=== PATIENT | female | born 1960 | race American Indian/Alaskan Native ===

== ENCOUNTER 2017-02-15 10:14 | Outpatient (CLI) | payer MEDICAID ==
--- NOTE | 2017-02-15 12:43 | Ultrasound Report ---
ULTRASOUND RENAL BILATERAL HISTORY: Hypertension. TECHNIQUE: transabdominal ultrasound with color Doppler interrogation. FINDINGS: The right kidney measures 11.0 x 4.6 x 5.8cm. Right renal cortex: 1.5cm. The left kidney measures 11.4 x 5.1 x 5.9cm. Left renal cortex: 1.2cm. Scans of the kidneys show normal renal contours. There is normal central calyceal clustering and good preservation of the cortical thickness. There is no evidence of mass or hydronephrosis. 8 mm cyst at the superior pole of the right kidney is noted. 9 mm cyst at the midpole of the left kidney is noted. The views of the bladder and the region of the ureters appear normal. IMPRESSION: Essentially unremarkable renal ultrasound. Tiny solitary bilateral renal cysts are identified. No mass, calculus or hydronephrosis.
== END 2017-02-15 10:15 | disposition home or self-care (01) ==
LOC: US 10:14
PROVIDERS: ATTEND Specialist
DX: I10 Essential (primary) hypertension (principal); N28.1 Cyst of kidney, acquired; F17.200 Nicotine dependence, unspecified, uncomplicated
CPT/HCPCS: 76770

== ENCOUNTER 2017-07-10 04:28 | Emergency (ER) | payer MEDICAID ==
[~2017-07-10 04:28] MED LIST: NACL 0.9% 1000 ML 1,000 ML ONE
[2017-07-10] MEDS ORDERED: ZOFRAN ONE ×2 (04:34→04:38)
[2017-07-10] MEDS ORDERED: NACL 0.9% 1000 ML 1,000 ML IV ONE (04:54)
[2017-07-10] MEDS ORDERED: ZOFRAN IV ONE (04:55)
[2017-07-10 05:19] LABS: Urine Drugs of Abuse Note Disclamer
[2017-07-10 05:37] LABS: Bilirubin,Urine NEG (Negative); Blood,Urine NEG (Negative); Granular Casts,Urine 2 /LPF; Ketones,Urine NEG (Negative); Leukocyte Esterase,Urine NEG (Negative); Nitrite,Urine NEG (Negative); RBC,Urine < 1.0 /HPF (0.0-6.0); Urobilinogen,Urine < 2.0 mg/dL (<2.0)
[2017-07-10 05:53] LABS: Basophils % (Auto) 0.2 % (0.0-1.8); Eosinophils % (Auto) 0.1 % (0.0-4.3); Hematocrit 38.9 % (30.3-42.9); Hemoglobin 12.7 gm/dl (10.1-14.3); Mean Corpuscular HGB Conc 33 % (30-34); Mean Corpuscular Hemoglobin 29 pg (28-32); Mean Corpuscular Volume 88 fl (79-97); Platelet Count 415 K/mm3 (140-440); Red Blood Count 4.44 M/mm3 (3.65-5.03); Red Cell Distribution Width 14.8 % (13.2-15.2); White Blood Count 17.2 K/mm3 (4.5-11.0)
--- NOTE | 2017-07-10 05:58 | Cat Scan Report ---
FINAL REPORT EXAM: CT HEAD/BRAIN WO CON HISTORY: headache TECHNIQUE: CT imaging acquired through the head without intravenous contrast. Transaxial reformations are provided. PRIORS: None. FINDINGS: The ventricles, cisterns and sulci are within normal limits. No intraparenchymal or extra-axial mass, hemorrhage, or mass effect. James and white-matter differentiation is within normal limits for patient age. Normal spherical shape of the globes. No significant abnormality involving the imaged portions of the paranasal sinuses and mastoid air cells. No skull or facial fracture visualized. IMPRESSION: No acute intracranial abnormality.
[2017-07-10 06:27] LABS: Alanine Aminotransferase TNR units/L (7-56); Anion Gap TNR mmol/L; BUN/Creatinine Ratio TNR; Bilirubin,Total TNR mg/dL (0.1-1.2); Blood Urea Nitrogen TNR mg/dL (7-17); Calcium TNR mg/dL (8.4-10.2); Carbon Dioxide TNR mmol/L (22-30); Chloride TNR mmol/L (98-107); Creatine Kinase TNR units/L (30-135); Glucose TNR mg/dL (65-100); Potassium TNR mmol/L (3.6-5.0); Sodium TNR mmol/L (137-145)
[2017-07-10 06:28] LABS: Albumin TNR g/dL (3.9-5); Albumin/Globulin Ratio TNR %; Alkaline Phosphatase TNR units/L (35-129); Total Protein TNR g/dL (6.3-8.2)
--- NOTE | 2017-07-10 06:59 | Emergency Department Report ---
HPI - General Chief Complaint: Overdose Time Seen by Provider: 07/10/17 06:01 - HPI HPI: This is a 56-year-old Afro-[place] female presents to the emergency department by EMS with a possible overdose and altered mental status. Report from EMS was that the EMS service was responding to a cardiac arrest call and upon arrival at the scene found this patient sitting in a car unresponsive with agonal respirations and pinpoint pupils. She received 2 mg of Narcan and within 2 minutes she began becoming more responsive and agitated. By the time I'm seeing the patient in the ER, the patient is arousable but does have some confusion about the events of this evening. She is unsure how she got here and thinks that the last thing she was doing was driving a car. She denies any significant past medical history. ED Past Medical Hx - Past Medical History Previous Medical History?: Yes Hx Hypertension: Yes Additional medical history: irregular heart beat - Surgical History Past Surgical History?: Yes Additional Surgical History: hysterectomy. right leg surgery. cyst removed from throat - Social History Smoking Status: Unknown if ever smoked - Medications Home Medications: Home Medications Medication Instructions Recorded Confirmed Last Taken Type Naproxen 500 mg PO BID #30 tablet 07/01/17 Unknown Rx Sulfamethoxazole/Trimethoprim 1 each PO BID #20 tablet 07/01/17 Unknown Rx [Bactrim DS TAB] traMADol [Ultram 50 MG tab] 50 mg PO Q6HR PRN #20 tablet 07/01/17 Unknown Rx ED Review of Systems ROS: Stated complaint: POSS OVERDOSE Other details as noted in HPI Comment: Unobtainable due to pts medical conditions Neurological: confusion Physical Exam - Physical Exam Vital Signs: Vital Signs 07/10/17 05:10 Temperature 97.7 F Pulse Rate 101 H Respiratory 20 Rate Blood Pressure 117/57 O2 Sat by Pulse 98 Oximetry Physical Exam: GENERAL: The patient is well-developed well-nourished. HENT: Normocephalic. Atraumatic. Patient has moist mucous membranes. EYES: Extraocular motions are intact. Pupils equal reactive to light bilaterally. No nystagmus. NECK: Supple. Trachea is midline. CHEST/LUNGS: Clear to auscultation. There is no respiratory distress noted. HEART/CARDIOVASCULAR: Regular. There is no tachycardia. There is no gallop rub or murmur. ABDOMEN: Abdomen is soft, nontender. Patient has normal bowel sounds. There is no abdominal distention. SKIN: Skin is warm and dry. NEURO: The patient is fatigued but is easily arousable. She is AAO 3 but has some mild confusion about previous events. Follows commands. Cranial nerves II through XII grossly intact. MUSCULOSKELETAL: There is no tenderness or deformity. There is no limitation range of motion. There is no evidence of acute injury. ED Course Vital Signs 07/10/17 05:10 Temperature 97.7 F Pulse Rate 101 H Respiratory 20 Rate Blood Pressure 117/57 O2 Sat by Pulse 98 Oximetry ED Medical Decision Making - Lab Data Result diagrams: 07/10/17 Unknown 07/10/17 Unknown - EKG Data -: EKG Interpreted by Me EKG shows normal: sinus rhythm (with PVC), axis, intervals, QRS complexes, ST-T waves Rate: normal - EKG Data When compared to previous EKG there are: previous EKG unavailable Interpretation: normal EKG - Radiology Data Radiology results: report reviewed EXAM: CT HEAD/BRAIN WO CON HISTORY: headache TECHNIQUE: CT imaging acquired through the head without intravenous contrast. Transaxial reformations are provided. PRIORS: None. FINDINGS: The ventricles, cisterns and sulci are within normal limits. No intraparenchymal or extra-axial mass, hemorrhage, or mass effect. James and white-matter differentiation is within normal limits for patient age. Normal spherical shape of the globes. No significant abnormality involving the imaged portions of the paranasal sinuses and mastoid air cells. No skull or facial fracture visualized. IMPRESSION: No acute intracranial abnormality. - Medical Decision Making The patient was reevaluated multiple times for multiple hours and she is completely awake, alert and oriented and asking for discharge home. Her labs eventually all came back and did not show any significant abnormalities that would've shown her altered mental status other than the urine drug screen positive for cocaine. However it sounds like the patient did have a good response to Narcan and therefore there is suspicion that there is some underlying opiate abuse as well that has not yet shown positive on her urine drug screen. Or there is some other drug that was synthesized, and could not be seen on a urine drug screen that could've caused mental status and/or respiratory depression. Her vital signs and stable throughout her ED course. CT of the head did not show any bleed, shift, mass or any acute process. The patient appears to understand the gravity of the condition that she was in and how close to or cardiac arrest she was. She denies any suicidal or homicidal ideations. She understands that she needs to stay away from any further illicit drugs. She will return to the ER with any worsening of her symptoms or any acute distress. She will follow up with a primary care physician. Discharge instructions were given while she was in the emergency department and all her questions have been answered. - Differential Diagnosis dysrhythmia, CVA, TIA, substance abuse, overdose Critical Care Time: No Critical care attestation.: If time is entered above; I have spent that time in minutes in the direct care of this critically ill patient, excluding procedure time. ED Disposition Clinical Impression: Overdose Qualifiers: Encounter type: initial encounter Injury intent: accidental or unintentional Qualified Code(s): T50.901A - Poisoning by unspecified drugs, medicaments and biological substances, accidental (unintentional), initial encounter Altered mental status Qualifiers: Altered mental status type: transient alteration of awareness Qualified Code(s) : R40.4 - Transient alteration of awareness Disposition: DC-01 TO HOME OR SELFCARE Is pt being admited?: No Condition: Stable Instructions: Cocaine Abuse (ED), Altered Mental Status (ED) Additional Instructions: Please follow-up with your primary care physician in the next few days. Please stay away from any further illicit drug use such as cocaine. Return to the emergency Department with any worsening of your symptoms or any acute distress. Referrals: HYACINTH CHAHAL MD [Referring] - 3-5 Days [facility] [Outside] - 3-5 Days PRIMARY CAREMD [Primary Care Provider] - 3-5 Days Forms: Accompanied Note Time of Disposition: 09:53
[2017-07-10 09:28] LABS: Alanine Aminotransferase 32 units/L (7-56); Albumin 3.7 g/dL (3.9-5); Albumin/Globulin Ratio 1.1 %; Alkaline Phosphatase 50 units/L (35-129); Anion Gap 19 mmol/L; BUN/Creatinine Ratio 21; Bilirubin,Total < 0.20 mg/dL (0.1-1.2); Blood Urea Nitrogen 21 mg/dL (7-17); Calcium 8.7 mg/dL (8.4-10.2); Carbon Dioxide 23 mmol/L (22-30); Glucose 69 mg/dL (65-100); Potassium 4.6 mmol/L (3.6-5.0); Sodium 140 mmol/L (137-145); Total Protein 7.1 g/dL (6.3-8.2)
[2017-07-10 10:34] VITALS: BP 113/60
== END 2017-07-10 10:15 | disposition home or self-care (01) ==
LOC: ED 04:28
DX: T50.901A Poisoning by unspecified drugs, medicaments and biological substances, accidental (unintentional), initial encounter (principal); R40.4 Transient alteration of awareness; I10 Essential (primary) hypertension; X58.XXXA Exposure to other specified factors, initial encounter; Y93.89 Activity, other specified; Y92.89 Other specified places as the place of occurrence of the external cause; Y99.8 Other external cause status
CPT/HCPCS: 36415; 51702; 70450; 80053; 80307; 81001; 82140; 82962; 84484; 84703; 85025; 93005; 93010; 96361; 96374; 99285; G0480; J2405; J7030; 80320

== ENCOUNTER → 2017-08-29 01:18 | Emergency (ER) | payer MEDICAID | END | disposition left against medical advice (07) | LOC: ED 01:18 | DX: M54.9 Dorsalgia, unspecified (principal); Z53.21 Procedure and treatment not carried out due to patient leaving prior to being seen by health care provider ==

== ENCOUNTER 2019-02-26 16:52 | Emergency (ER) | payer MEDICAID ==
[2019-02-26] MEDS ORDERED: IBUPROFEN PO ONE (17:43)
--- NOTE | 2019-02-26 17:43 | Event Note ---
ED Screening Note Date of service: 02/26/19 Time: 17:39 ED Screening Note: 58 y/o female comes in for eye irritations for last 2 days. Pain to the eyes inside. Got eyelashes done This initial assessment/diagnostic orders/clinical plan/treatment(s) is/are subject to change based on patients health status, clinical progression and re- assessment by fellow clinical providers in the ED. Further treatment and workup at subsequent clinical providers discretion. Patient/guardian urged not to elope from the ED as their condition may be serious if not clinically assessed and managed. Initial orders include:
[2019-02-26 20:05] VITALS: BP 128/80
--- NOTE | 2019-02-26 20:13 | Emergency Department Report ---
ED General Adult HPI - General Chief complaint: Eye Problems Stated complaint: EYE IRRITATION Time Seen by Provider: 02/26/19 19:30 Source: patient Mode of arrival: Ambulatory Limitations: No Limitations - History of Present Illness Initial comments: Patient is a 58-year-old -[place] female with a history of CHF, hypertension and chronic back pain who presents to the ED with complaint of acute onset persistent bilateral eye pain with thick purulent discharge and matting for the last 3 days after applying makeup. The patient states that she has been taking pain medications at home already, but that the pain, the marketing and a purulent discharge and have worsened. Patient denies change in vision, nausea, vomiting, nasal and sinus congestion, facial swelling, sore throat, nasal and sinus congestion, dizziness, headache, vision loss, fever and chills or cough. MD Complaint: Bilateral eye pain -: Sudden, days(s) (3) Location: eyes Radiation: non-radiation Severity scale (0 -10): 6 Quality: burning, aching Consistency: constant Worsens with: none Associated Symptoms: denies other symptoms. denies: confusion, chest pain, cough, diaphoresis, headaches, loss of appetite, malaise, rash, seizure, shortness of breath, syncope, weakness Treatments Prior to Arrival: none - Related Data Previous Rx's Medication Instructions Recorded Last Taken Type Naproxen 500 mg PO BID #30 tablet 07/01/17 Unknown Rx Sulfamethoxazole/Trimethoprim 1 each PO BID #20 tablet 07/01/17 Unknown Rx [Bactrim DS TAB] traMADol [Ultram 50 MG tab] 50 mg PO Q6HR PRN #20 tablet 07/01/17 Unknown Rx Acetaminophen/Codeine [Tylenol 1 tab PO Q6H PRN #10 tab 02/26/19 Unknown Rx /Codeine # 3 tab] Gentamicin 0.3% Ophth Soln 1 drops OP Q4H #1 bottle 02/26/19 Unknown Rx Ibuprofen [Motrin] 600 mg PO Q8H PRN #20 tablet 02/26/19 Unknown Rx Allergies Allergy/AdvReac Type Severity Reaction Status Date / Time No Known Allergies Allergy Verified 02/26/19 17:37 ED Review of Systems ROS: Stated complaint: EYE IRRITATION Other details as noted in HPI Constitutional: denies: chills, fever Eyes: eye pain, eye discharge, other (Bilateral erythematous conjunctiva and sclera with purulent discharge). denies: vision change ENT: denies: ear pain, throat pain Respiratory: denies: cough, shortness of breath, wheezing Cardiovascular: denies: chest pain, palpitations Endocrine: no symptoms reported Gastrointestinal: denies: abdominal pain, nausea, diarrhea Genitourinary: denies: urgency, dysuria, discharge Musculoskeletal: denies: back pain, joint swelling, arthralgia Skin: denies: rash, lesions Neurological: denies: headache, weakness, paresthesias Psychiatric: denies: anxiety, depression Hematological/Lymphatic: denies: easy bleeding, easy bruising ED Past Medical Hx - Past Medical History Hx Hypertension: Yes Hx Congestive Heart Failure: Yes Additional medical history: irregular heart beat, chronic back surgery - Surgical History Past Surgical History?: Yes Additional Surgical History: hysterectomy. right leg surgery. cyst removed from throat - Social History Smoking Status: Current Every Day Smoker - Medications Home Medications: Home Medications Medication Instructions Recorded Confirmed Last Taken Type Naproxen 500 mg PO BID #30 tablet 07/01/17 Unknown Rx Sulfamethoxazole/Trimethoprim 1 each PO BID #20 tablet 07/01/17 Unknown Rx [Bactrim DS TAB] traMADol [Ultram 50 MG tab] 50 mg PO Q6HR PRN #20 tablet 07/01/17 Unknown Rx Acetaminophen/Codeine [Tylenol 1 tab PO Q6H PRN #10 tab 02/26/19 Unknown Rx /Codeine # 3 tab] Gentamicin 0.3% Ophth Soln 1 drops OP Q4H #1 bottle 02/26/19 Unknown Rx Ibuprofen [Motrin] 600 mg PO Q8H PRN #20 tablet 02/26/19 Unknown Rx ED Physical Exam - General Limitations: No Limitations General appearance: alert, in no apparent distress - Head Head exam: Present: atraumatic, normocephalic, normal inspection - Eye Eye exam: Present: normal appearance, PERRL, EOMI, other (Erythematous bilateral conjunctiva and sclera with thick purulent discharge and matting) Pupils: Present: normal accommodation - ENT ENT exam: Present: normal exam, normal orophraynx, mucous membranes moist, TM's normal bilaterally, normal external ear exam - Neck Neck exam: Present: normal inspection, full ROM - Respiratory Respiratory exam: Present: normal lung sounds bilaterally. Absent: respiratory distress, wheezes, rales, rhonchi, stridor, chest wall tenderness, decreased breath sounds, prolonged expiratory - Cardiovascular Cardiovascular Exam: Present: regular rate, normal rhythm, normal heart sounds. Absent: systolic murmur, diastolic murmur, rubs, gallop - GI/Abdominal GI/Abdominal exam: Present: soft, normal bowel sounds. Absent: tenderness, guarding, rebound, hyperactive bowel sounds, hypoactive bowel sounds, organomegaly - Rectal Rectal exam: Present: deferred - Extremities Exam Extremities exam: Present: normal inspection, full ROM, normal capillary refill - Back Exam Back exam: Present: normal inspection, full ROM. Absent: tenderness, CVA tenderness (R), CVA tenderness (L), paraspinal tenderness, vertebral tenderness - Neurological Exam Neurological exam: Present: alert, oriented X3, CN II-XII intact, normal gait, reflexes normal - Psychiatric Psychiatric exam: Present: normal affect, normal mood - Skin Skin exam: Present: warm, dry, intact, normal color. Absent: rash ED Course Vital Signs 02/26/19 02/26/19 02/26/19 17:02 18:13 20:03 Temperature 98.1 F Pulse Rate 94 H 80 Respiratory 13 18 16 Rate Blood Pressure 121/78 128/80 [Right] O2 Sat by Pulse 98 Oximetry - Reevaluation(s) Reevaluation #1: 02/26/19 20:33 Patient is alert and oriented 3 and is not in distress with normal vital signs. Patient's symptoms are consistent with acute bacterial bilateral conjunctivitis based on the physical exam findings. Patient was discharged home on pain medications and antibiotic eyedrops and advised follow-up with her primary care physician in 5-7 days for reevaluation or return to the ED immediately if symptoms get worse. ED Medical Decision Making - Medical Decision Making Patient is alert and oriented 3 and is not in distress with normal vital signs. Patient's symptoms are consistent with acute bacterial bilateral conjunctivitis based on the physical exam findings. Patient was discharged home on pain medications and antibiotic eyedrops and advised follow-up with her primary care physician in 5-7 days for reevaluation or return to the ED immediately if symptoms get worse. - Differential Diagnosis Bacterial conjunctivitis; Keratitis; Viral conjunctivitis Critical care attestation.: If time is entered above; I have spent that time in minutes in the direct care of this critically ill patient, excluding procedure time. ED Disposition Clinical Impression: Pain of both eyes Acute conjunctivitis of both eyes Qualifiers: Acute conjunctivitis type: bacterial Qualified Code(s): H10.33 - Unspecified acute conjunctivitis, bilateral Disposition: TO HOME OR SELFCARE Is pt being admited?: No Does the pt Need Aspirin: No Condition: Stable Instructions: Conjunctivitis (ED) Additional Instructions: Take Medications as advised, drink plenty of fluids and follow-up with your primary care physician is advised in 5-7 days. Return to the ED immediately if symptoms get worse. Prescriptions: Gentamicin 0.3% Ophth Soln 1 drops OP Q4H #1 bottle Ibuprofen [Motrin] 600 mg PO Q8H PRN #20 tablet PRN Reason: Pain Acetaminophen/Codeine [Tylenol /Codeine # 3 tab] 1 tab PO Q6H PRN #10 tab PRN Reason: Pain , Severe (7-10) Referrals: [facility] [Outside] - 3-5 Days Time of Disposition: 20:11 Print Language: SLOVAK
== END 2019-02-26 20:40 | disposition home or self-care (01) ==
LOC: ED 16:52
DX: H10.33 Unspecified acute conjunctivitis, bilateral (principal); I11.0 Hypertensive heart disease with heart failure; I50.9 Heart failure, unspecified; F17.200 Nicotine dependence, unspecified, uncomplicated; Z86.79 Personal history of other diseases of the circulatory system; Z98.890 Other specified postprocedural states; Z90.710 Acquired absence of both cervix and uterus; Z79.899 Other long term (current) drug therapy
CPT/HCPCS: 99282

== ENCOUNTER 2019-09-02 14:30 | Emergency (ER) | payer MEDICAID ==
[2019-09-02 16:12] VITALS: BP 130/85
--- NOTE | 2019-09-02 16:18 | Event Note ---
ED Screening Note Date of service: 09/02/19 ED Screening Note: This initial assessment/diagnostic orders/clinical plan/treatment(s) is/are subject to change based on patients health status, clinical progression and re- assessment by fellow clinical providers in the ED. Further treatment and workup at subsequent clinical providers discretion. Patient/guardian urged not to elope from the ED as their condition may be serious if not clinically assessed and managed. Initial orders include: 58 Y/O FEMALE PRESENTS C/O OF NASAL CONGESTION, RUNNY NOSE AND BILATERAL EYE IRRITATION. NO EYE DISCHARGE. BUT NASAL DISCHARGE CLEAR. NO FEVER OR CHILLS. NO SWEATS. NO CHEST PAIN OR SOB. NO DIZZINESS GENERAL APPEARANCE: AxOx4, generally well-appearing F, no acute distress. HEENT: NC, AT. MMM. EOMI, clear conjunctiva injected, oropharynx clear, nasal clear discharge. NECK: Supple without lymphadenopathy. No stiffness or restricted ROM. HEART: Normal rate and regular rhythm, normal S1/S1, no m/r/g LUNGS: CTAB, moving air well. No crackles or wheezes are heard. ABDOMEN: Soft, nontender, nondistended with good bowel sounds heard. BACK: No CVAT, no obvious deformity. EXTREMITIES: Without cyanosis, clubbing or edema. NEUROLOGICAL: Grossly nonfocal. Alert and oriented, moving all 4 extremities. CN not formally tested but appear grossly intact. Observed to ambulate with normal gait. Skin: Warm and dry without any rash.
== END 2019-09-02 16:16 | disposition left against medical advice (07) ==
LOC: ED 14:30
DX: R05 Cough (principal); Z53.21 Procedure and treatment not carried out due to patient leaving prior to being seen by health care provider